=== PATIENT | female | born 1940 | race Caucasian/White ===

== ENCOUNTER → 2018-11-04 | Outpatient (CLI) | payer MEDICARE ==
[~2018-11-04] MED LIST: FUROSEMIDE INJ 10 MG/ML 4 ML VIAL ONE
--- NOTE | 2018-11-04 12:05 | Diagnostic Imaging Report ---
Renal Scan with Lasix [place] Clinical information: Hydronephrosis Technique: Following intravenous administration of 10 mCi of Tc-99m MAG3, dynamic images of the kidneys in the posterior projection were obtained through 40 minutes. Lasix 40 mg was administered intravenously at 10 minutes post injection of the tracer. Report: Left kidney: Perfusion of the left kidney is prompt. The kidney has a distorted reniform shape with moderate thinning of the renal cortex and is overall decreased in size. Extraction of tracer from the blood pool is decreased. Clearance of tracer from the renal parenchyma begins promptly but there is some retention of tracer in the renal parenchyma at the end of the study. The pelvicalyceal system is very mildly dilated. No increased pooling of tracer is seen within the pelvicalyceal system. Drainage of tracer from the pelvicalyceal system is prompt and adequate prior to administration of Lasix. No significant stasis of tracer is seen within the left ureter. Right kidney: Perfusion to the right kidney is prompt. The right kidney has reniform shape but is overall reduced in size. Extraction of tracer by the renal parenchyma is decreased. Clearance of tracer from the renal parenchyma begins promptly but is not complete by the end of the study. The pelvicalyceal system is not dilated. Physiologic pooling of tracer is seen within the pelvicalyceal system. Drainage of tracer from the pelvicalyceal system is prompt and adequate prior to administration of Lasix. No significant stasis of tracer is seen within the right ureter. Differential renal function: The left kidney contributes 39% of total renal function and the right kidney contributes 61% (normal 43-57%). Impression: 1. Thinning of the renal cortex consistent with loss of renal parenchyma. This accounts for the decreased differential function of 39%. Mild medical renal disease is also present although may be normal for age. Very mild hydronephrosis is present. No physiologically significant obstruction of the renal collecting system is present. 2. Scan evidence of mild medical renal disease in the right kidney although may be normal for age. No hydronephrosis is present. No physiologically significant obstruction of the renal collecting system is present. Signed by: Dr. Fior Roman M.D. on 11/04/2018 12:01 PM
== END ==
LOC: NM 08:36
PROVIDERS: ATTEND Urology
DX: N13.30 Unspecified hydronephrosis (principal)
CPT/HCPCS: 78708; A9562; J1940